=== PATIENT | female | born 1995 | race African-American/Black ===

== ENCOUNTER 2016-11-02 17:37 | Emergency (ER) | payer OTHER ==
[~2016-11-02] VITALS: Ht 162.6 cm; Wt 60.0 kg
[2016-11-02 17:38] VITALS: BP 149/67; PULSE 72; RESP 15; TEMP 98.2; O2SAT 99
[2016-11-02] MEDS ORDERED: SODIUM CHLOR 0.9% 1000 ML INJ 1,000 ML IV SCH (19:06)
--- NOTE | 2016-11-02 19:11 | PD ---
HPI Chief Complaint: GI Complaint Time Seen by Provider: 18:58 Travel History International Travel<30 days: No Contact w/Intl Traveler<30days: No Traveled to known affect area: No History of Present Illness HPI 21-year-old female complains of abdominal pain, nausea vomiting diarrhea. Patient states that she has burning abdominal pain for the past 2 weeks. Patient states the pain is diffuse over the abdomen. Patient denies any pain radiation. Patient states that she started having intermittent nausea vomiting diarrhea since yesterday. Patient denies any dysuria or frequency. Patient denies any vaginal discharge or bleeding. Patient denies any fever chills. Patient has not IUD in place. Patient states that she has irregular menstruation period since IUD placement. PFSH Past Medical History Medical History: Denies Significant Hx Diminished Hearing: No Tetanus Vaccination: < 5 Years ?: Not LMP: august 2016 Past Surgical History Surgical History: No Previous Surgery Social History Alcohol Use: No Tobacco Use: No Substance Use: No Allergies-Medications (Allergen,Severity, Reaction): Coded Allergies: No Known Allergies (Unverified , 11/02/16) Review of Systems General / Constitutional: No: Fever Eyes: No: Visual changes HENT: No: Headaches Cardiovascular: No: Chest Pain or Discomfort Respiratory: No: Shortness of Breath Gastrointestinal: Positive: Nausea, Vomiting, Diarrhea, Abdominal Pain Genitourinary: No: Dysuria Musculoskeletal: No: Pain Skin: No Rash Neurologic: No: Weakness Psychiatric: No: Depression Endocrine: No: Polydipsia Hematologic/Lymphatic: No: Easy Bruising Physical Exam Narrative GENERAL: Well-nourished, well-developed patient. SKIN: Focused skin assessment warm/dry. HEAD: Normocephalic. EYES: No scleral icterus. No injection or drainage. NECK: Supple, trachea midline. No JVD or lymphadenopathy. CARDIOVASCULAR: Regular rate and rhythm without murmurs, gallops, or rubs. RESPIRATORY: Breath sounds equal bilaterally. No accessory muscle use. GASTROINTESTINAL: Abdomen soft, nondistended. Patient has mild diffuse tenderness over the abdomen. No rebound tenderness. No mass. MUSCULOSKELETAL: No cyanosis, or edema. BACK: Nontender without obvious deformity. No CVA tenderness. Data Data Last Documented VS Vital Signs Date Time Temp Pulse Resp B/P Pulse Ox O2 Delivery O2 Flow Rate FiO2 11/02/16 19:24 16 97 Room Air 11/02/16 17:38 98.2 72 149/67 Orders Complete Blood Count With Diff (11/02/16 19:06) Comprehensive Metabolic Panel (11/02/16 19:06) Lipase (11/02/16 19:06) Prothrombin Time / Inr (Pt) (11/02/16 19:06) Act Partial Throm Time (Ptt) (11/02/16 19:06) Urinalysis - C+S If Indicated (11/02/16 19:06) Ct Abd/Pel W Iv Contrast(Rout) (11/02/16 19:06) Iv Access Insert/Monitor (11/02/16 19:06) Ecg Monitoring (11/02/16 19:06) Oximetry (11/02/16 19:06) Ondansetron Inj (Zofran Inj) (11/02/16 19:15) Pantoprazole Inj (Protonix Inj) (11/02/16 19:15) Sodium Chlor 0.9% 1000 Ml Inj (Ns 1000 M (11/02/16 19:06) Ed Urine Pregnancytest Poc (11/02/16 19:06) Urine Culture (11/02/16 19:20) Iohexol 350 Inj (Omnipaque 350 Inj) (11/02/16 21:27) Labs Laboratory Tests Test 11/02/16 11/02/16 19:15 19:20 White Blood Count 7.4 TH/MM3 Red Blood Count 5.38 MIL/MM3 Hemoglobin 13.8 GM/DL Hematocrit 42.6 % Mean Corpuscular Volume 79.2 FL Mean Corpuscular Hemoglobin 25.7 PG Mean Corpuscular Hemoglobin 32.5 % Concent Red Cell Distribution Width 12.2 % Platelet Count 282 TH/MM3 Mean Platelet Volume 7.7 FL Neutrophils (%) (Auto) 58.7 % Lymphocytes (%) (Auto) 30.7 % Monocytes (%) (Auto) 8.7 % Eosinophils (%) (Auto) 1.4 % Basophils (%) (Auto) 0.5 % Neutrophils # (Auto) 4.4 TH/MM3 Lymphocytes # (Auto) 2.3 TH/MM3 Monocytes # (Auto) 0.6 TH/MM3 Eosinophils # (Auto) 0.1 TH/MM3 Basophils # (Auto) 0.0 TH/MM3 CBC Comment DIFF FINAL Differential Comment Prothrombin Time 11.2 SEC Prothromb Time International 1.0 RATIO Ratio Activated Partial 29.1 SEC Thromboplast Time Sodium Level 138 MEQ/L Potassium Level 3.5 MEQ/L Chloride Level 103 MEQ/L Carbon Dioxide Level 24.7 MEQ/L Anion Gap 10 MEQ/L Blood Urea Nitrogen 11 MG/DL Creatinine 1.02 MG/DL Estimat Glomerular Filtration 84 ML/MIN Rate Random Glucose 84 MG/DL Calcium Level 9.4 MG/DL Total Bilirubin 0.3 MG/DL Aspartate Amino Transf 14 U/L (AST/SGOT) Alanine Aminotransferase 17 U/L (ALT/SGPT) Alkaline Phosphatase 111 U/L Total Protein 7.9 GM/DL Albumin 4.0 GM/DL Lipase 187 U/L Urine Color YELLOW Urine Turbidity HAZY Urine pH 6.0 Urine Specific [place] 1.028 Urine Protein TRACE mg/dL Urine Glucose (UA) NEG mg/dL Urine Ketones NEG mg/dL Urine Occult Blood NEG Urine Nitrite POS Urine Bilirubin NEG Urine Urobilinogen LESS THAN 2.0 MG/DL Urine Leukocyte Esterase SMALL Urine RBC LESS THAN 1 /hpf Urine WBC 5 /hpf Urine Squamous Epithelial 6 /hpf Cells Urine Bacteria MANY /hpf Urine Mucus FEW /lpf Microscopic Urinalysis Comment CULTURE INDICATED MDM Medical Decision Making Medical Screen Exam Complete: Yes Emergency Medical Condition: Yes Interpretation(s) 21:37 PM. CBC within normal limit. CMP within normal limit. UA positive for 5 WBC and bacteria. 22 33 PM. Last Impressions Abdomen/Pelvis CT 11/02/161905 Signed Impressions: Service Date/Time: Wednesday, November 02, 2016 21:10 - CONCLUSION: 1. Probable complicated cyst right ovary. 2. IUD in place. 3. No dilated loops of small or large bowel. Nithin Escobar MD CBC within normal limit. CMP within normal limit. UA positive for WBC and bacteria. Differential Diagnosis Differential diagnosis including gastritis, PUD, pancreatitis, cholecystitis, colitis, UTI, pyelonephritis, nephrolithiasis. Narrative Course 21-year-old female with abdominal pain, nausea vomiting diarrhea. Normal saline solution 1 25 cc an hour. Protonix 40 mg IV. Zofran 4 mg IV. Diagnosis Primary Impression: Gastroenteritis Patient Instructions: General Instructions Additional Instructions: Take medication as directed. Follow-up with personal physician and GI specialist if persistent problem. Return if worse. Med/Other Pt SpecificInfo: Prescription(s) given Scripts Ondansetron Odt (Zofran Odt)4 Mg Tab4 Mg SL Q6HR PRN (Nausea/Vomiting) #10 TAB Ref 0 Prov:Richard Lara MD 11/02/16 Dicyclomine (Bentyl)10 Mg Cap10 Mg PO TID PRN (Bowel Management) #15 CAP Ref 0 Prov:Richard Lara MD 11/02/16 Pantoprazole (Protonix)20 Mg Tab20 Mg PO DAILY #14 TAB Prov:Richard Lara MD 11/02/16 Disposition: 01 DISCHARGE HOME Condition: Stable Richard Lara MD Nov 02, 2016 19:11
[2016-11-02] MEDS ORDERED: PANTOPRAZOLE SODIUM 40 MG VIAL IVP ONE (19:15)
[2016-11-02] MEDS ORDERED: ONDANSETRON HCL 4 MG/2 ML VIAL IVP ONE (19:15)
[2016-11-02 19:24] VITALS: RESP 16; O2SAT 97
[2016-11-02 20:11] LABS: BACTERIA, URINE MANY /hpf; BLOOD, URINE NEG (NEG); COMMENT (UR) CULTURE INDICATED; CULTURE IF INDICATED CULTURE INDICATED; GLUCOSE,URINE NEG (NEG); KETONE, URINE NEG (NEG); MUCUS URINE FEW /lpf (OCC); SQUAMOUS EPITHELIAL CELL URINE 6 /hpf (0-5); URINE COLOR YELLOW (YELLW/STRAW)
[2016-11-02 20:13] LABS: NITRITE,URINE POS (NEG)
[2016-11-02 20:14] LABS: AUTOMATED NEUTROPHIL # 4.4 TH/MM3 (1.8-7.7); BASOPHIL % 0.5 % (0.0-2.0); EOSINOPHIL # 0.1 TH/MM3 (0-0.4); EOSINOPHIL % 1.4 % (0.0-4.0); HEMATOCRIT 42.6 % (35.0-46.0); HEMO FLAGS DIFF FINAL; LYMPH % 30.7 % (9.0-44.0); LYMPHOCYTE # 2.3 TH/MM3 (1.0-4.8); MEAN CELL VOLUME 79.2 FL (80.0-100.0); MEAN CORPUSCULAR HEMOGLOBIN 25.7 PG (27.0-34.0); MEAN CORPUSCULAR HGB CONC 32.5 % (32.0-36.0); MONO % 8.7 % (0.0-8.0); NEUT % 58.7 % (16.0-70.0); PLATELET COUNT 282 TH/MM3 (150-450); RED BLOOD COUNT 5.38 MIL/MM3 (4.00-5.30); RED CELL DISTRIBUTION WIDTH 12.2 % (11.6-17.2); WHITE BLOOD COUNT 7.4 TH/MM3 (4.0-11.0)
[2016-11-02 20:18] LABS: APTT (PATIENT) 29.1 SEC (24.3-30.1); PROTHROMBIN TIME - PATIENT 11.2 SEC (9.8-11.6)
[2016-11-02 20:19] LABS: ANION GAP 10 MEQ/L (5-15); AST (GOT) 14 U/L (16-38); BICARBONATE 24.7 MEQ/L (21.0-32.0); BLOOD UREA NITROGEN 11 MG/DL (7-18); CHLORIDE 103 MEQ/L (98-107); GLOMERULAR FILTRATION RATE 84 ML/MIN (>89); POTASSIUM 3.5 MEQ/L (3.5-5.1); SODIUM (NA) 138 MEQ/L (136-145)
[2016-11-02 20:20] LABS: ALT (GPT) 17 U/L (9-42)
[2016-11-02 20:22] LABS: ALKALINE PHOSPHATASE 111 U/L (45-117); TOTAL BILIRUBIN ADULT 0.3 MG/DL (0.2-1.0)
[2016-11-02] MEDS ORDERED: IOHEXOL 350 MG/ML 10 ML VIAL (for RAD DIAG) IV ONE (21:27)
--- NOTE | 2016-11-02 22:18 | RADRPT ---
EXAM DATE/TIME: 11/02/2016 21:10 [facility] COMPARISON: No previous studies available for comparison. INDICATIONS : Vomiting and diarrhea x1 day. Stomach pain. IV CONTRAST: 96 cc Omnipaque 350 (iohexol) IV ORAL CONTRAST: No oral contrast ingested. RADIATION DOSE: 9.96 CTDIvol (mGy) MEDICAL HISTORY : None SURGICAL HISTORY : None. ENCOUNTER: Initial ACUITY: 1 day PAIN SCALE: 5/10 LOCATION: Bilateral upper quadrant TECHNIQUE: Volumetric scanning of the abdomen and pelvis was performed. Using automated exposure control and ad justment of the mA and/or kV according to patient size, radiation dose was kept as low as reasonably achievable to obtain optimal diagnostic quality images. DICOM format image data is available electro nically for review and comparison. FINDINGS: LOWER LUNGS: The visualized lower lungs are clear. LIVER: Homogeneous density without lesion. There is no dilation of the biliary tree. No calcified gallston es. SPLEEN: Normal size without lesion. PANCREAS: Within normal limits. KIDNEYS: Normal in size and shape. There is no mass, stone or hydronephrosis. ADRENAL GLANDS: Within normal limits. VASCULAR: There is no aortic aneurysm. BOWEL/MESENTERY: No dilated loops of small or large bowel. ABDOMINAL WALL: Within normal limits. RETROPERITONEUM: There is no lymphadenopathy. BLADDER: No wall thickening or mass. REPRODUCTIVE: Anteverted uterus with T-shaped IUD in place. Prominent low density area in the right adnexa measuri ng up to 3.6 cm may represent a complicated ovarian cyst. No evidence of free fluid in the [place]. INGUINAL: There is no lymphadenopathy or hernia. MUSCULOSKELETAL: Within normal limits for patient age. CONCLUSION: 1. Probable complicated cyst right ovary. 2. IUD in place. 3. No dilated loops of small or large bowel. Nithin Escobar MD on November 02, 2016 at 22:13 Board Certified Radiologist. This report was verified electronically.
[2016-11-02] MEDS ORDERED: PANT20 PO (22:37)
[2016-11-02] MEDS ORDERED: DICY10 PO (22:37)
[2016-11-02] MEDS ORDERED: ZOFR4TAB3 SL (22:37)
== END 2016-11-02 23:08 | disposition home or self-care (01) ==
LOC: NEPE 17:37
DX: K52.9 Noninfective gastroenteritis and colitis, unspecified (principal); N39.0 Urinary tract infection, site not specified; B96.1 Klebsiella pneumoniae [K. pneumoniae] as the cause of diseases classified elsewhere
CPT/HCPCS: 74177; 80053; 81001; 83690; 84703; 85025; 85610; 85730; 87077; 87086; 87186; 96361; 96374; 96375; 99285; C9113; J2405; J7030; Q9967